=== PATIENT | female | born 1960 | race Caucasian/White ===

== ENCOUNTER 2018-08-19 11:30 | Outpatient (REF) | payer MEDICAID, SELFPAY ==
--- NOTE | 2018-08-19 11:30 | PAPFT_PTH ---
PATIENT: Antonieta Cartwright LOC: [facility] U#:[id number] AGE/SX: 57/F ROOM: RE08/19/[address]: Shiloh Rosario APRN : 1960 BED: DIS: 08/19/2018 SPEC #: [id number] RECD: 08/20/18 12:56 STATUS: ADALGISA REJose Cruz #: [id number] ELVIS: 08/19/18 11:[address]: Shiloh Rosario DEPT: [facility], [facility] Cytology RECD BY: Jaymie Razo Tissues: 1 - CX/ENDOCX FOR PAP SMEARS Procedures: PAP THIN PREP/UVM Screening HPV DNA PROBE Comments: [id number]
== END 2018-08-19 11:50 ==
LOC: LBN 11:30
PROVIDERS: PCP Nurse Practitioner Family; Visit Provider Nurse Practitioner Family
DX: Z12.4 Encounter for screening for malignant neoplasm of cervix (principal); Z11.51 Encounter for screening for human papillomavirus (HPV)
CPT/HCPCS: 88142; 87624

== ENCOUNTER 2018-08-20 11:09 | Outpatient (CLI) | payer MEDICAID, SELFPAY ==
[2018-08-20 11:28] LABS: Abs Immature Grans 0.01 k/cumm (0.0-0.09); Absolute Basophil Count 0.01 k/cumm (0.0-0.2); Absolute Eosinophil Count 0.07 k/cumm (0.0-0.7); Absolute Lymphocyte Count 1.08 k/cumm (1.2-3.4); Absolute Monocyte Count 0.38 k/cumm (0.11-0.7); Absolute Neutrophil Count 2.64 k/cumm (1.2-6.7); Basophils % 0.2; Eosinophils % 1.7; HCT 31.9 % (36.0-46.0); HGB 11.4 g/dL (12.0-15.5); Immature Grans % 0.2; Lymphocytes % 25.8; Mean Corp. HGB Concentration 35.7 g/dL (32.0-36.0); Mean Corpuscular Hemoglobin 36.2 pg (27.0-33.0); Mean Corpuscular Volume 101.3 fL (80-95); Mean Platelet Volume 7.2 fL (8.0-11.0); Monocytes % 9.1; Platelet Count 206 x1000/uL (130-400); RBC 3.15 m/cumm (4.00-5.20); RBC Distribution Width 10.8 % (11.7-14.6); White Blood Cell Count 4.19 k/cumm (4.4-10.8)
[2018-08-20 13:12] LABS: ALT 21 U/L (12-78); AST 14 U/L (15-37); Albumin 3.7 g/dL (3.4-5.0); Alkaline Phosphatase 123 U/L (46-116); Anion Gap 8.6 mmol/L (3-11); BUN 7 mg/dL (7-18); Bilirubin, Total 0.3 mg/dL (0.2-1.0); CO2 28.4 mmol/L (21.0-32.0); CREATININE 0.69 mg/dL (0.55-1.02); Calcium 8.7 mg/dL (8.5-10.1); Chloride 93 mmol/L (98-107); Glucose 95 mg/dL (70-100); Potassium 3.8 mmol/L (3.5-5.1); Sodium 130 mmol/L (136-145); TSH (W/Ref FT4) 2.08 uIU/mL (0.358-3.74); Total Protein 7.2 g/dL (6.4-8.2)
== END 2018-08-20 11:29 ==
PROVIDERS: PCP Nurse Practitioner Family; Visit Provider Nurse Practitioner Family
DX: D53.9 Nutritional anemia, unspecified (principal); Z86.39 Personal history of other endocrine, nutritional and metabolic disease
CPT/HCPCS: 36415; 80053; 84443; 85025

== ENCOUNTER 2019-07-28 06:05 | Emergency (ER) | payer MEDICAID, SELFPAY ==
[2019-07-28 06:10] VITALS: BP 99/70; PULSE 84; RESP 16; TEMP 36.7; O2SAT 99
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
== END 2019-07-28 06:21 | disposition home or self-care (01) ==
LOC: ER 06:18
PROVIDERS: Emergency Provider Emergency Medicine; PCP Nurse Practitioner Family
DX: T16.2XXA Foreign body in left ear, initial encounter (principal)
CPT/HCPCS: 99281

== ENCOUNTER 2019-09-09 12:40 | Outpatient (CLI) | payer MEDICAID, SELFPAY ==
[2019-09-09 13:33] LABS: ALT 17 U/L (14-59); AST 14 U/L (15-37); Albumin 3.7 g/dL (3.4-5.0); Alkaline Phosphatase 93 U/L (46-116); Anion Gap 8.8 mmol/L (3-11); BUN 11 mg/dL (7-18); Bilirubin, Total 0.1 mg/dL (0.2-1.0); CO2 28.2 mmol/L (21.0-32.0); CREATININE 0.86 mg/dL (0.55-1.02); Calcium 9.2 mg/dL (8.5-10.1); Chloride 99 mmol/L (98-107); Glucose 102 mg/dL (74-106); Sodium 136 mmol/L (136-145); TROPONIN-I 11.7 ug/mL (4.0-12.0); Total Protein 7.6 g/dL (6.4-8.2)
[2019-09-09 13:39] LABS: Abs Immature Grans 0.01 k/cumm (0.0-0.09); Absolute Basophil Count 0.01 k/cumm (0.0-0.2); Absolute Eosinophil Count 0.07 k/cumm (0.0-0.7); Absolute Lymphocyte Count 1.52 k/cumm (1.2-3.4); Absolute Monocyte Count 0.34 k/cumm (0.11-0.7); Absolute Neutrophil Count 2.65 k/cumm (1.2-6.7); Basophils % 0.2; Eosinophils % 1.5; HCT 32.2 % (36.0-46.0); HGB 11.4 g/dL (12.0-15.5); Immature Grans % 0.2; Mean Corp. HGB Concentration 35.4 g/dL (32.0-36.0); Mean Corpuscular Hemoglobin 36.1 pg (27.0-33.0); Mean Corpuscular Volume 101.9 fL (80-95); Mean Platelet Volume 7.8 fL (8.0-11.0); Monocytes % 7.4; Neutrophils % 57.7; Platelet Count 256 x1000/uL (130-400); RBC 3.16 m/cumm (4.00-5.20); RBC Distribution Width 10.9 % (11.7-14.6)
[2019-09-09 13:43] LABS: TSH (W/Ref FT4) 1.67 uIU/mL (0.36-3.74)
[2019-09-11 15:22] LABS: Levetiracetam 58.3 mcg/mL
== END 2019-09-09 13:00 ==
PROVIDERS: Psychiatry & Neurology Neurology; PCP Nurse Practitioner Family; Visit Provider Nurse Practitioner Family
DX: G40.209 Localization-related (focal) (partial) symptomatic epilepsy and epileptic syndromes with complex partial seizures, not intractable, without status epilepticus (principal); Z51.81 Encounter for therapeutic drug level monitoring; Z86.39 Personal history of other endocrine, nutritional and metabolic disease
CPT/HCPCS: 36415; 80053; 80156; 80177; 84443; 85025

== ENCOUNTER 2021-04-14 04:26 | Outpatient (CLI) | payer MEDICAID, SELFPAY ==
[2021-04-14 09:47] LABS: Abs Immature Grans 0.01 10^3/uL (0.0-0.06); Absolute Basophil Count 0.02 10^3/uL (0.0-0.2); Absolute Eosinophil Count 0.02 10^3/uL (0.0-0.7); Absolute Lymphocyte Count 1.61 10^3/uL (1.2-3.4); Absolute Monocyte Count 0.37 10^3/uL (0.1-0.8); Basophils % 0.4; Eosinophils % 0.4; HCT 31.2 % (36.0-46.0); HGB 10.8 g/dL (11.2-15.7); Immature Grans % 0.2; Lymphocytes % 33.3; MCH 35.4 pg (27.0-33.0); MCHC 34.6 % (32.0-36.0); MCV 102.3 fL (80-95); MPV 7.8 fL (8.0-11.0); Monocytes % 7.7; Nucleated RBC 0 %; Platelet Count 190 10^3/uL (130-400); RBC 3.05 10^6/uL (3.93-5.22); RDW 10.9 % (11.7-14.6); RDW-SD 40.7 fL; WBC 4.83 10^3/uL (4.4-10.8)
[2021-04-14 10:05] LABS: TROPONIN-I 11.7 ug/mL (4.0-12.0)
[2021-04-14 10:29] LABS: ALT 17 U/L (14-59); AST 17 U/L (15-37); Albumin 3.5 g/dL (3.4-5.0); Alkaline Phosphatase 109 U/L (46-116); Anion Gap 9.6 mmol/L (3-11); BUN 11 mg/dL (7-18); Bilirubin, Total 0.2 mg/dL (0.2-1.0); CO2 26.4 mmol/L (21.0-32.0); CREATININE 0.8 mg/dL (0.55-1.02); Calcium 8.7 mg/dL (8.5-10.1); Chloride 102 mmol/L (98-107); Glucose 86 mg/dL (74-106); Potassium 3.9 mmol/L (3.5-5.1); Sodium 138 mmol/L (136-145); TSH (W/Ref FT4) 2.03 uIU/mL (0.36-3.74); Total Protein 6.9 g/dL (6.4-8.2)
[2021-04-15 16:17] LABS: Levetiracetam 87.3 mcg/mL
== END 2021-04-14 04:27 | disposition home or self-care (01) ==
LOC: LBO 04:26
PROVIDERS: Psychiatry & Neurology Neurology; PCP Nurse Practitioner Family; Visit Provider Nurse Practitioner Family
DX: Z79.899 Other long term (current) drug therapy (principal); Z51.81 Encounter for therapeutic drug level monitoring; E03.9 Hypothyroidism, unspecified; G40.209 Localization-related (focal) (partial) symptomatic epilepsy and epileptic syndromes with complex partial seizures, not intractable, without status epilepticus
CPT/HCPCS: 36415; 80053; 80156; 80177; 84443; 85025

== ENCOUNTER 2021-04-19 02:51 | Outpatient (CLI) | payer MEDICAID, SELFPAY ==
--- NOTE | 2021-04-19 08:30 | DI.MAMMO_ITS ---
Exam(s) MAMMO SCREENING EXAM: MAMMO SCREENING CLINICAL HISTORY: screening,z12.39 TECHNIQUE: Bilateral full field digital CC and MLO mammographic images were obtained with 3D tomosyn thesis and utilizing computer aided detection (CAD). COMPARISON: Available for comparison. FINDINGS: Masses/Architectural Distortion: None seen. Microcalcifications: No suspicious pleomorphic-type are seen. Skin Thickening/Nipple Retraction: None. IMPRESSION: 1. No significant interval change with no specific features of malignancy noted. 2. Unless there is more urgent need, screening mammography is recommended, as per [place] guidelines. BI-RADS Category 1 - Negative Breast Density - Category B - Scattered areas of fibroglandular density Breast density category C or D implies that the patient has dense breast tissue. Dense breast tissue is very common and is not abnormal but dense breast tissue can make it harder to find cancer on a ma mmogram. Also, dense breast tissue may increase their breast cancer risk. This information about the result of the mammogram report was provided to the patient to raise their awareness. Use this report when you speak with the patient about their risks for breast cancer, which includes their family hist ory. At that time, you may recommend for more screening tests (Ultrasound or MRI) as they might be us eful based on their risk. A negative radiographic report should not delay biopsy if a dominant or clinically suspicious mass is present. Up to ten percent of cancers are not identified on mammography. A negative report may reinforce clinical impression. Adenosis and dense breasts may obscure an underlying neoplasm. False positive reports average 6 to 10%. Patient will receive a letter notifying them of these results.
== END 2021-04-19 03:11 ==
PROVIDERS: PCP Nurse Practitioner Family; Visit Provider Nurse Practitioner Family
DX: Z12.31 Encounter for screening mammogram for malignant neoplasm of breast (principal); R92.8 Other abnormal and inconclusive findings on diagnostic imaging of breast
CPT/HCPCS: 77063; 77067

== ENCOUNTER 2022-07-12 03:20 | Outpatient (CLI) | payer MEDICAID, SELFPAY ==
[2022-07-12 09:41] LABS: Abs Immature Grans 0.01 10^3/uL (0.0-0.06); Absolute Basophil Count 0.03 10^3/uL (0.0-0.2); Absolute Eosinophil Count 0.06 10^3/uL (0.0-0.7); Absolute Lymphocyte Count 1.37 10^3/uL (1.2-3.4); Absolute Monocyte Count 0.39 10^3/uL (0.1-0.8); Absolute Neutrophil Count 2.62 10^3/uL (1.2-6.7); Basophils % 0.7; Eosinophils % 1.3; HCT 31.2 % (36.0-46.0); HGB 11.1 g/dL (11.2-15.7); Immature Grans % 0.2; Lymphocytes % 30.6; MCH 36.2 pg (27.0-33.0); MCHC 35.6 % (32.0-36.0); MCV 102 fL (80-95); Monocytes % 8.7; Neutrophils % 58.5; Platelet Count 141 10^3/uL (130-400); RBC 3.07 10^6/uL (3.93-5.22); RDW 11.2 % (11.7-14.6); RDW-SD 41.5 fL; WBC 4.48 10^3/uL (4.4-10.8)
[2022-07-12 10:40] LABS: ALT 17 U/L (14-59); AST 13 U/L (15-37); Albumin 3.5 g/dL (3.4-5.0); Alkaline Phosphatase 111 U/L (46-116); Anion Gap 8.4 mmol/L (3-11); BUN 19 mg/dL (7-18); Bilirubin, Total 0.2 mg/dL (0.2-1.0); CO2 27.6 mmol/L (21.0-32.0); CREATININE 0.8 mg/dL (0.55-1.02); Calcium 8.9 mg/dL (8.5-10.1); Calculated LDL 92 mg/dL (<100); Chloride 103 mmol/L (98-107); Cholesterol 194 mg/dL (<200); Estimated GFR 84.82 (mL/min/1.73m2); Glucose 92 mg/dL (74-106); HDL Cholesterol 89 mg/dL (40-60); Potassium 3.8 mmol/L (3.5-5.1); Sodium 139 mmol/L (136-145); TROPONIN-I 14.6 ug/mL (4.0-12.0); TSH (W/Ref FT4) 2.91 uIU/mL (0.36-3.74); Total Protein 7.5 g/dL (6.4-8.2); Triglyceride 68 mg/dL (<150)
[2022-07-13 12:37] LABS: Levetiracetam 72.7 mcg/mL
== END 2022-07-12 03:21 | disposition home or self-care (01) ==
LOC: LBO 03:21
PROVIDERS: PCP Nurse Practitioner Family; Visit Provider Nurse Practitioner Family
DX: G40.219 Localization-related (focal) (partial) symptomatic epilepsy and epileptic syndromes with complex partial seizures, intractable, without status epilepticus (principal)
CPT/HCPCS: 36415; 80053; 80061; 80156; 80177; 84443; 85025

== ENCOUNTER 2023-12-26 15:03 | Outpatient (CLI) | payer MEDICAID, SELFPAY ==
[2023-12-26 15:24] LABS: Abs Immature Grans 0.01 10^3/uL (0.0-0.06); Absolute Basophil Count 0.02 10^3/uL (0.0-0.2); Absolute Eosinophil Count 0.03 10^3/uL (0.0-0.7); Absolute Lymphocyte Count 1.44 10^3/uL (1.2-3.4); Absolute Monocyte Count 0.32 10^3/uL (0.1-0.8); Basophils % 0.5; Eosinophils % 0.8; HCT 30.8 % (36.0-46.0); HGB 11.2 g/dL (11.2-15.7); Immature Grans % 0.3; Lymphocytes % 37.7; MCH 35.8 pg (27.0-33.0); MCHC 36.4 % (32.0-36.0); MCV 98 fL (80-95); MPV 7.6 fL (8.0-11.0); Monocytes % 8.4; Neutrophils % 52.3; Platelet Count 177 10^3/uL (130-400); RBC 3.13 10^6/uL (3.93-5.22); RDW 10.9 % (11.7-14.6); WBC 3.82 10^3/uL (4.4-10.8)
[2023-12-26 16:21] LABS: ALT 17 U/L (14-59); AST 15 U/L (15-37); Albumin 3.6 g/dL (3.4-5.0); Alkaline Phosphatase 90 U/L (46-116); Anion Gap 12.2 mmol/L (3-11); BUN 11 mg/dL (7-18); Bilirubin, Total 0.1 mg/dL (0.2-1.0); CO2 24.8 mmol/L (21.0-32.0); CREATININE 0.9 mg/dL (0.55-1.02); Calcium 8.5 mg/dL (8.5-10.1); Chloride 97 mmol/L (98-107); Estimated GFR 72.73 (mL/min/1.73m2); Glucose 99 mg/dL (74-106); Potassium 3.9 mmol/L (3.5-5.1); Sodium 134 mmol/L (136-145); TROPONIN-I 10.7 ug/mL (4.0-12.0)
[2023-12-26 16:36] LABS: TSH 2.25 uIU/Ml (0.36-3.74); Vitamin B12 294 pg/mL (193-986)
[2023-12-26 16:42] LABS: Vitamin D 25 Total 48.1 ng/mL (30-100)
[2023-12-28 12:11] LABS: Levetiracetam 46.7 mcg/mL
== END 2023-12-26 15:04 | disposition home or self-care (01) ==
LOC: LBO 15:17
PROVIDERS: Emergency Medicine; PCP Nurse Practitioner Family; Visit Provider Psychiatry & Neurology Neurology
DX: E03.9 Hypothyroidism, unspecified (principal); D75.89 Other specified diseases of blood and blood-forming organs; E55.9 Vitamin D deficiency, unspecified; Z86.39 Personal history of other endocrine, nutritional and metabolic disease
CPT/HCPCS: 36415; 80053; 82306; 80156; 80177; 82607; 84443; 85025

== ENCOUNTER 2025-01-08 01:42 | Outpatient (CLI) | payer MEDICAID, SELFPAY ==
--- NOTE | 2025-01-08 07:15 | DI.MAMMO_ITS ---
Exam(s) MAMMO SCREENING EXAM: MAMMO SCREENING CLINICAL HISTORY: screening,z12.39. TECHNIQUE: Bilateral full field digital CC and MLO mammographic images were obtained with 3D tomosyn thesis and utilizing computer aided detection (CAD). COMPARISON: Prior mammograms were reviewed. Most recent mammogram was 2020. FINDINGS: There has been no significant change in the appearance and distribution of the fibroglandular tissue. There are no CAD designations. There are no new spiculated masses nor malignant appearing microcalcification groups. There is no significant architectural distortion nor skin thickening-retraction. IMPRESSION: No radiographic evidence of malignancy. BI-RADS Category 1 - Negative Breast Density - Category A - Almost entirely fatty Breast density Category C or D implies that the patient has dense breast tissue. Dense breast tissue can make it harder to find cancer on a mammogram. Dense breast tissue is also associated with an incr eased risk of breast cancer. This information about the result of the mammogram report was provided to the patient to raise their awareness. Use this report when you speak with the patient about their risks for breast cancer, which includes their family history. At that time, you may recommend additional screening tests (Ultrasoun d or MRI) as these tests may add significant information. A negative radiographic report should not delay biopsy if a dominant or clinically suspicious mass is present. Up to ten percent of cancers are not identified on mammography. A negative report may reinforce clinical impression. Adenosis and dense breasts may obscure an underlying neoplasm. False positive reports average 6 to 10%. Patient will receive a letter notifying them of these results.
== END 2025-01-08 02:02 ==
LOC: DI 01:42
PROVIDERS: PCP Nurse Practitioner Adult Health; Visit Provider Nurse Practitioner Adult Health
DX: Z12.31 Encounter for screening mammogram for malignant neoplasm of breast (principal); R92.313 Mammographic fatty tissue density, bilateral breasts
CPT/HCPCS: 77063; 77067